=== PATIENT | female | born 1930 | race Caucasian/White ===

== ENCOUNTER 2017-03-10 09:45 | Observation (INO) | payer MEDICARE, OTHER ==
[~2017-03-10] VITALS: Ht 177.8 cm; Wt 81.7 kg
[2017-03-10] MEDS ORDERED: LIPITOR40 MG PO (10:16)
[2017-03-10] MEDS ORDERED: DOCUSATE SODIU100 MG PO (10:17)
[2017-03-10] MEDS ORDERED: CATAPRES0.2 MG PO (10:17)
[2017-03-10] MEDS ORDERED: GAVILAX8.5 GM PO (10:18)
[2017-03-10] MEDS ORDERED: PLAVIX75 MG PO (10:19)
[2017-03-10] MEDS ORDERED: ISOSORBIDE DINI30 MG PO (10:19)
[2017-03-10] MEDS ORDERED: METOPROLOL SUCC50 MG PO (10:19)
[2017-03-10] MEDS ORDERED: VITAMIN C500 MG PO (10:20)
[2017-03-10] MEDS ORDERED: DOXYCYCLINE HY100 MG PO (10:21)
[2017-03-10] MEDS ORDERED: NORCO 5-325 TA1 EACH PO (10:21)
[2017-03-10] MEDS ORDERED: LANTUS SOL100 UNIT/1 SUB-Q (10:22)
[2017-03-10] MEDS ORDERED: NOVOLOG100 UNIT/2 SUB-Q (10:23)
[2017-03-10] MEDS ORDERED: NITROSTAT0.4 MG SL (10:24)
[2017-03-10] MEDS ORDERED: ZOFRAN ODT4 MG PO (10:24)
[2017-03-10] MEDS ORDERED: HYDRALAZINE HC100 MG PO (10:25)
[2017-03-10] MEDS ORDERED: ACETAMINOPHEN325 M1 PO (10:25)
[2017-03-10] MEDS ORDERED: ALDACTONE25 MG PO (10:26)
[2017-03-10] MEDS ORDERED: FOLGARD TABLET1 EAC1 PO (10:27)
[2017-03-10] MEDS ORDERED: CLEOCIN HCL300 MG PO (10:27)
[2017-03-10] MEDS ORDERED: NORVASC10 MG PO (10:28)
[2017-03-10] MEDS ORDERED: ASPIR-LOW81 MG PO (10:28)
--- NOTE | 2017-03-10 18:44 | NUR ---
PT ARRIVED TO ROOM 111 AT [address] LUNDBERG DISIMPACTED PT AND GAVE SUPPOSITORY. PT TOOK LACTULOSE AND LISINOPRIL. PT RESTING COMFORTABLY IN BED WITH WARM BLANKETS NOW. VSS.
--- NOTE | 2017-03-10 19:25 | NUR ---
PATIENT RESTING QUIETLY ON HER LEFT SIDE. EYES OPEN AND ALERT.
--- NOTE | 2017-03-10 20:00 | NUR ---
PATIENT UP TO THE BEDSIDE COMMODE, BUT HAD ALREADY BEEN INCONTINENT STOOL IN HER ATTENDS, ON THE BED, AND ON THE FLOOR. PATIENT WAS CLEANED UP AND LINEN AND UNDERGARMENTS CHANGED AND SHE WAS PUT BACK TO BED. PATIENT DOES NOT KNOW THE MONTH, YEAR, PRESIDENT, OR EVEN WHERE SHE IS.
--- NOTE | 2017-03-10 21:00 | EKG ---
[facility] [address] [place] [address] Signed Sinus bradycardia with 1st degree AV block with premature atrial complexes Inferior infarct , age undetermined Abnormal ECG No previous ECGs available Confirmed by CORI LUNDBERG MD ([id number]) on 03/10/2017 8:59:48 PM Electronically Signed By: CORI LUNDBERG MD 03/10/17 2100 PATIENT NAME: ADELA COATS Electrocardiogram DATE OF : [birth year] PHYSICIAN: CORI LUNDBERG MD REPORT #: [id number] REPORT IS CONFIDENTIAL AND NOT TO BE RELEASED WITHOUT AUTHORIZATION
--- NOTE | 2017-03-10 22:00 | NUR ---
PATIENT RESTING QUIETLY AFTER BEING TURNED BACK TO HER LEFT SIDE AFTER BEING ON HER RIGHT SIDE FOR 2 HOURS. PATIENT'S COCCYX IS SLIGHTLY REDDEND SO TRY TO KEEP HER OFF IT MUCH POSSIBLE.
--- NOTE | 2017-03-11 00:05 | NUR ---
PATIENT RESTING SUPINE, EYES CLOSED, RESPIRATIONS EVEN AND UNLABORED.
--- NOTE | 2017-03-11 02:05 | NUR ---
PATIENT RESTING QUITLY, EYES CLOSED, RESPIRATION EVEN AND UNLABORED. PT WAS TURNED TO HER RIGHT SIDE FROM SUPINE POSITION TO PREVENT PRESSURE SORES.
--- NOTE | 2017-03-11 04:07 | NUR ---
PATIENT AWAKE NOW AND PLEASANT. SHE STILL DOES NOT RECOGNIZE WHERE SHE IS OR WHY SHE IS HERE EVEN THOUGH NURSING STAFF HAS TRIED TO REINFORCE THAT INFORMATION WITH HER. SHE IS RESTING QUITELY. SHE WILL NOT USE HER CALL LIGHT, SHE JUST WHISTLES WHEN SHE WANTS SOMETHING.
--- NOTE | 2017-03-11 04:21 | NUR ---
PATIENT CURRENTLY AWAKE AND AGAIN ON HER LEFT SIDE. SHE REMAINS PLEASANTLY CONFUSED.
--- NOTE | 2017-03-11 05:48 | NUR ---
pATIENT HAS SLEPT INTERMITTENTLY THROUGH THE NIGHT. SHE IS PLEASANTLY CONFUSED AND IS SEE PEOPLE IN THE ROOM THAT ARE NOT THERE. SHE IS ONLY ORIENTED TO PERSON. SHE HAD 1 LARGE SOFT PASTY DARK BROWN STOOL ON THIS SHIFT. SHE LR RUNNING AT 100mls/HR IN AN IV IN HER RAC WHICH IS COVED WITH A TOWEL AND COBAN TO HELP KEEP HER ARE STRAIGHT. PATIENT IS DIABETIC WITH BLOOD SUGARS AC AND HS WITH SLIDING SCALE INSULIN COVERAGE. PATIENT HAS AN ULCERATION ON HER RIGHT HEEL WHICH NEEDS TO HAVE A DRESSING CHANGE SOON THE SUPPLIES ARE AVAILABLE FROM PHARMACY. PATIENT HAS ALSO BEEN BEING TURNED Q2 HOURS SHE IS DEVELOPING SOME REDNESS AROUND THE COCCYX AREA. VS HAVE BEEN STABLE. PATIENT HAS SARMIENTO CHRONICALLY AND HAD A NEW ONE PLACED IN THE ER THIS MORNING.
--- NOTE | 2017-03-11 06:53 | NUR ---
PATIENT JUST UP WITH 2 PERSON FULL ASSIST AND PIVET TO THE BEDSIDE COMMODE. PATIENT HAD A HUGE STOOL, SOFT, PASTY, DART BROWN. PATIENT WAS THEN CLEAN UP AND PLACED BACK IN BED POSITIONED ON HER LEFT SIDE.
--- NOTE | 2017-03-11 10:45 | NUR ---
PT INCONTINENT OF LARGE, SOFT BM. PT CLEANED AND ATTENDS CHANGED. PT DRESSED IN PERSONAL CLOTHING. NOTED THAT PT HAD PULLED HER IV AND REMOVED DRESSING THAT WAS ON SKIN TEAR JUST ABOVE RIGHT AC. SKIN TEAR REDRESSED WITH NON ADHERANT PAD AND OPSITE. PT REPOSITIONED TO BACK. CALL LIGHT WITHIN REACH. BED ALARM ON.
[2017-03-11] MEDS ORDERED: METOPROLOL TART50 MG PO (10:57)
[2017-03-11] MEDS ORDERED: GAVILAX8.5 GM PO (11:00)
--- NOTE | 2017-03-11 11:00 | NUR ---
PT IS RESTING SAFELY IN BED WITH CALL LIGHT IN REACH. PT IS DRESSED AND WAITING TO BE DISCHARGED
[2017-03-11] MEDS ORDERED: SENNA8.6 MG PO (11:01)
== END 2017-03-11 12:40 ==
LOC: ED 09:45 → MS 09:47
PROVIDERS: ADMIT Internal Medicine
DX: E86.0 Dehydration (principal); G93.41 Metabolic encephalopathy; M25.552 Pain in left hip; L89.613 Pressure ulcer of right heel, stage 3; I95.89 Other hypotension; E11.22 Type 2 diabetes mellitus with diabetic chronic kidney disease; I12.9 Hypertensive chronic kidney disease with stage 1 through stage 4 chronic kidney disease, or unspecified chronic kidney disease; N18.3 Chronic kidney disease, stage 3 (moderate); I25.2 Old myocardial infarction; I25.10 Atherosclerotic heart disease of native coronary artery without angina pectoris; E78.5 Hyperlipidemia, unspecified; F03.90 Unspecified dementia, unspecified severity, without behavioral disturbance, psychotic disturbance, mood disturbance, and anxiety; K56.41 Fecal impaction; Z66 Do not resuscitate; Z79.82 Long term (current) use of aspirin; Z79.2 Long term (current) use of antibiotics; Z79.02 Long term (current) use of antithrombotics/antiplatelets; Z79.4 Long term (current) use of insulin; Z79.891 Long term (current) use of opiate analgesic; Z79.899 Other long term (current) drug therapy; Z88.0 Allergy status to penicillin; Z88.8 Allergy status to other drugs, medicaments and biological substances
CPT/HCPCS: 51702; 71010; 73502; 73700; 80053; 81001; 84484; 85025; 93005; 93010; 96361; 96365; 96375; 99285; G0378; J1170; J1956; J7030; J7040; J7120